=== PATIENT | male | born 1980 | race Hispanic/Latino ===

== ENCOUNTER 2022-11-28 12:16 | Emergency (ER) | payer OTHER, SELFPAY ==
--- NOTE | ~2022-11-28 | XR_ITS ---
XR hand RT min 3V 11/28/2022 13:11 INDICATION: Right hand pain after trauma PROCEDURE: 3 views right hand COMPARISON: No prior studies for comparison. FINDINGS: Fracture, dislocation or subluxation is not identified. The soft tissues appear within norm al limits. No foreign bodies are identified. IMPRESSION: 1: NO ACUTE BONE OR JOINT ABNORMALITY IDENTIFIED. Reviewed, dictated and finalized at location A. 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
[2022-11-28 12:23] VITALS: BP 174/81; PULSE 66; RESP 18; TEMP 37.2; O2SAT 99
--- NOTE | 2022-11-28 12:35 | ED.UPPEXIN ---
HPI - Extremity Injury (Upper) General Chief Complaint: Extremity Injury, Upper <Debbie Guevara APRN - Last Filed: 11/28/22 12:47> Stated Complaint: Right Hand Pain <Debbie Guevara APRN - Last Filed: 11/28/22 12:47> Time Seen by Provider: 11/28/22 12:37 <Debbie Guevara APRN - Last Filed: 11/28/22 12:47> Source: patient, RN notes reviewed and old records reviewed <Debbie Guevara APRN - Last Filed: 11/28/22 12:47> Mode of arrival: ambulatory <Debbie Guevara APRN - Last Filed: 11/28/22 12:47> Limitations: no limitations <Debbie Guevara APRN - Last Filed: 11/28/22 12:47> History of Present Illness HPI narrative: 42-year-old male presents to the [facility] with right hand pain that occurred approximately 1 hour prior to arrival. Patient states that he smashed his hand when the trailer was getting away from him. Small abrasion noted to the center dorsal aspect and center palmar aspect. Moderate amount of swelling noted. Capillary refill under 2 seconds. Sensation intact in all 5 fingers. ice applied <Debbie Guevara APRN - Last Filed: 11/28/22 12:47> MD complaint: injury to: right and hand <Debbie Guevara APRN - Last Filed: 11/28/22 12:47> Onset (ago): hour(s) (1) <Debbie Guevara APRN - Last Filed: 11/28/22 12:47> Treatments prior to arrival: cold therapy <Debbie Guevara APRN - Last Filed: 11/28/22 12:47> Related Data Home Medications: Home Medications Medication Instructions Recorded Confirmed sertraline 50 mg tablet 50 mg DAILY 11/28/22 11/28/22 <Debbie Guevara APRN - Last Filed: 11/28/22 12:47> Allergies/Adverse Reactions: Allergies Allergy/AdvReac Type Severity Reaction Status Date / Time No Known Allergies Allergy Mild Verified 11/28/22 12:26 <Debbie Guevara APRN - Last Filed: 11/28/22 12:47> Review of Systems Review of Systems: All systems reviewed & are unremarkable except as noted in HPI and below <Debbie A. Siomnmicheal, PHILANTHROPY OFFICER - Last Filed: 11/28/22 12:47> Constitutional: Constitutional: Reports no additional constitutional complaints <Debbie A. Paola, PHILANTHROPY OFFICER - Last Filed: 11/28/22 12:47> Eyes: Eyes: Reports no additional eye complaints <Debbie A. Simonmicheal, PHILANTHROPY OFFICER - Last Filed: 11/28/22 12:47> ENT: Reports system reviewed and no additional complaints, except as documented <Debbie A. Simonmicheal, PHILANTHROPY OFFICER - Last Filed: 11/28/22 12:47> Cardiovascular: Cardiovascular: Reports no additional cardiovascular complaints, Denies chest pain and Denies dyspnea <Debbie A. Simonmicheal, PHILANTHROPY OFFICER - Last Filed: 11/28/22 12:47> Respiratory: Respiratory: Reports no additional respiratory complaints, Denies chest congestion, Denies cough and Denies dyspnea <Debbie A. Simonmicheal, PHILANTHROPY OFFICER - Last Filed: 11/28/22 12:47> Gastrointestinal: Gastrointestinal: Reports no additional gastrointestinal complaints, Denies abdominal pain, Denies nausea and Denies vomiting <Debbie A. Simonmicheal, PHILANTHROPY OFFICER - Last Filed: 11/28/22 12:47> Musculoskeletal: Musculoskeletal: Reports as per HPI (right hand pain) <Debbie A. Paola, PHILANTHROPY OFFICER - Last Filed: 11/28/22 12:47> Integumentary/Breasts: Skin/Breast: Reports system reviewed and no additional complaints, except as docu <Debbie A. Simonmicheal, PHILANTHROPY OFFICER - Last Filed: 11/28/22 12:47> Neurologic: Reports system reviewed and no additional complaints, except as documented <Debbie A. Paola, PHILANTHROPY OFFICER - Last Filed: 11/28/22 12:47> Psychiatric: Psychiatric: Reports no additional psychiatric complaints <Debbie A. Simonmicheal, PHILANTHROPY OFFICER - Last Filed: 11/28/22 12:47> Allergic/Immunologic: Allergic/Immunologic: Reports no additional allergic/immunologic complaints <Debbie A. Paola, PHILANTHROPY OFFICER - Last Filed: 11/28/22 12:47> PMFSH Past Medical History Medical History: Medical History (Updated 01/08/23 @ 13:28 by KAYLEIGH Mcnally) Patient denies medical problems <Debbie Guevara, ANTHONY - Last Filed: 11/28/22 12:47> Social History Social History: Social History (Updated 11/28/22 @ 12:4
--- NOTE | 2022-11-28 12:39 | PC.NURSE ---
1239- Pt transferring to [facility] for Xray to R hand d/t no xray available. RN to RN report given to Tiesha Chaparro
== END 2022-11-28 13:30 | disposition home or self-care (01) ==
PROVIDERS: Emergency Provider Nurse Practitioner
DX: S60.221A Contusion of right hand, initial encounter (principal); W23.0XXA Caught, crushed, jammed, or pinched between moving objects, initial encounter
CPT/HCPCS: 73130; 99213; G0463